=== PATIENT | male | born 1960 | race Caucasian/White ===

== ENCOUNTER → 2023-08-09 09:59 | Outpatient (REF) | payer OTHER, SELFPAY | LOC: HWRCS 09:59 | PROVIDERS: ATTENDING PHYSICIAN Internal Medicine; FAMILY PHYSICIAN Registered Nurse | DX: I25.10 Atherosclerotic heart disease of native coronary artery without angina pectoris (principal); I10 Essential (primary) hypertension; E78.5 Hyperlipidemia, unspecified; Z95.5 Presence of coronary angioplasty implant and graft | CPT/HCPCS: 93306 ==